=== PATIENT | female | born 1980 | race Caucasian/White ===

== ENCOUNTER 2023-01-08 09:12 | Emergency (ER) | payer MEDICAID, OTHER ==
[~2023-01-08] VITALS: Ht 162.6 cm; Wt 80.9 kg
[2023-01-08 09:52] LABS: BASO % 0.5 % (0.0-1.0); EOS # 0.2 10^3/uL (0.0-0.5); HEMATOCRIT 37.2 % (36.0-47.0); HEMOGLOBIN 11.7 g/dl (12.0-15.5); LYMPH # 1.9 10^3/uL (1.5-5.0); LYMPH % 25.1 % (24.0-44.0); MEAN CORPUSCULAR HGB CONC 31.5 g/dl (32.0-36.5); MEAN CORPUSCULAR VOLUME 95.4 fl (80.0-96.0); MONO # 0.7 10^3/uL (0.0-0.8); MONO % 9.9 % (2.0-8.0); NEUTROPHILS # 4.7 10^3/uL (1.5-8.5); NEUTROPHILS % 62.2 % (36.0-66.0); PLATELET COUNT, AUTOMATED 283 10^3/uL (150-450); WHITE BLOOD COUNT 7.5 10^3/uL (4.0-10.0)
[2023-01-08 10:20] LABS: LIPASE 32 U/L (12-53)
[2023-01-08] MEDS ORDERED: LIDOCAINE 5% (LIDODERM) PATCH TD ONE (12:00)
[2023-01-08] MEDS ORDERED: KETOROLAC 30 MG/ML 1ML VIAL IV ONE (12:00)
[2023-01-08] MEDS ORDERED: NS 1,000 ML IV ONE (12:00)
[2023-01-08 12:04] LABS: ALBUMIN 3.6 G/DL (3.2-5.2); ALKALINE PHOSPHATASE 89 U/L (46-116); ALT/SGPT 17 U/L (7.0-40); AST/SGOT 14 U/L (<34); BILIRUBIN,DIRECT < 0.1 MG/DL (<0.4); BILIRUBIN,TOTAL 0.3 MG/DL (0.3-1.2); BLOOD UREA NITROGEN 7 MG/DL (9-23); CALCIUM LEVEL 8.3 MG/DL (8.5-10.1); CARBON DIOXIDE LEVEL 25 MMOL/L (20-31); CHLORIDE LEVEL 108 MMOL/L (98-107); CREATININE FOR GFR 0.62 MG/DL (0.55-1.30); GLOMERULAR FILTRATION RATE > 60.0 (>58); GLUCOSE, FASTING 101 MG/DL (60-100); POTASSIUM SERUM 4.3 MMOL/L (3.5-5.1); SODIUM LEVEL 137 MMOL/L (136-145)
[2023-01-08] MEDS ORDERED: CYCLOBENZAPRINE 10MG TABLET PO ONE (12:05)
[2023-01-08 12:09] LABS: HCG, SERUM QUALITATIVE NEGATIVE (NEGATIVE)
[2023-01-08] MEDS ORDERED: ISOVUE-370 76% 100ML VIAL As Ordered ONE ×2 (12:14→12:54)
[2023-01-08] MEDS ORDERED: LIDO5DIS41 TOP (15:17)
[2023-01-08] MEDS ORDERED: MIRA3350 PO (15:17)
[2023-01-08] MEDS ORDERED: COLA100C5 PO (15:17)
[2023-01-08 15:25] VITALS: BP 124/76
== END 2023-01-08 15:35 | disposition home or self-care (01) ==
LOC: M ED 09:12
DX: S39.012A Strain of muscle, fascia and tendon of lower back, initial encounter (principal); N28.1 Cyst of kidney, acquired; K59.00 Constipation, unspecified; F17.200 Nicotine dependence, unspecified, uncomplicated; Z79.83 Long term (current) use of bisphosphonates; Z79.899 Other long term (current) drug therapy
CPT/HCPCS: 74177; 76830; 76856; 80048; 80076; 81000; 81001; 83605; 83690; 84703; 85025; 87086; 93976; 96361; 96374; 99284; J1885